=== PATIENT | male | born 2005 | race Caucasian/White ===

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

== ENCOUNTER 2023-08-02 23:04 | Emergency (ER) | payer BC ==
[2023-08-03] MEDS ORDERED: Naproxen 500 MG TAB ONE (00:02)
[2023-08-03 00:15] LABS: SARS-CoV-2 NAA Rapid Test Not Detected (NotDetected)
== END 2023-08-03 00:31 | disposition home or self-care (01) ==
LOC: CSHERS 23:04
DX: R51.9 Headache, unspecified (principal); Z20.822 Contact with and (suspected) exposure to COVID-19; Z79.899 Other long term (current) drug therapy
CPT/HCPCS: 71045